=== PATIENT | female | born 1945 | race Two or more races ===

== ENCOUNTER 2019-10-10 09:40 | Emergency (ER) | payer MEDICAID ==
[~2019-10-10] VITALS: Ht 157.5 cm; Wt 68.0 kg
[2019-10-10 09:40] VITALS: BP 150/80
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
--- NOTE | 2019-10-10 09:51 | NUR ---
ED Nurse Note: Patient sent to CT.
[2019-10-10] MEDS ORDERED: VITAMIN D5000 UNI1 PO (09:54)
[2019-10-10] MEDS ORDERED: HYDROCHLOROTHIA25 MG ORAL (09:54)
[2019-10-10] MEDS ORDERED: TYLENOL EXTRA500 MG ORAL (09:54)
[2019-10-10] MEDS ORDERED: TENORMIN100 MG ORAL (09:54)
[2019-10-10] MEDS ORDERED: LISINOPRIL20 MG ORAL (09:54)
[2019-10-10] MEDS ORDERED: ASPIRIN-LOW81 MG ORAL (09:54)
--- NOTE | 2019-10-10 10:08 | NUR ---
ED Nurse Note: Patient back from CT.
[2019-10-10 10:55] VITALS: BP 165/69
--- NOTE | 2019-10-10 11:00 | Diagnostic Imaging Report ---
Indication: Headache Technique: Contiguous 5 mm thick transaxial imaging of the head obtained in a Siem[employer] Sensation [address] scanner. Soft tissue and bone windows generated. Automatic Exposure Control was utilized. Total Dose length Product (DLP): [address] Dose Index Volume (CTDIvol): 62.7 mGy Comparison: none Findings: There is mild prominence of the ventricles, basal cisterns, and cerebral sulci consistent with atrophy. Mild, nonspecific, white matter hypoattenuation is noted throughout the brain consistent with chronic small vessel disease. Small cystic foci noted within the right basal ganglia including the caudate and putamen consistent with old lacunar infarcts. There is no midline shift, edema, acute hemorrhage, mass effect, or abnormal extra-axial fluid collections. Bones are unremarkable. Impression: No acute intracranial bleed, mass effect or edema. Mild atrophy of the brain. Nonspecific white matter hypoattenuation probably due to chronic small vessel disease including presence of old right basal ganglia lacunar infarcts. The CT scanner at [facility] is accredited by the [employer] and the scans are performed using dose optimization techniques as appropriate to a performed exam including Automatic Exposure control.
[2019-10-10 11:24] VITALS: BP 165/69
--- NOTE | 2019-10-10 11:24 | NUR ---
ER DISCHARGE NOTE: Patient is cleared to be discharged per ERMD Dr. Oliver, pt is aox4, on room air, with stable vital signs. pt was given dc instructions, pt was able to verbalize understanding, pt id band removed without complications. pt is able to ambulate with steady gait. pt took all belongings.
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
== END 2019-10-10 11:24 | disposition home or self-care (01) ==
LOC: EDBD 09:40 → EMR 10:00
DX: S09.90XA Unspecified injury of head, initial encounter (principal); V43.62XA Car passenger injured in collision with other type car in traffic accident, initial encounter; Y92.410 Unspecified street and highway as the place of occurrence of the external cause; I10 Essential (primary) hypertension; E11.9 Type 2 diabetes mellitus without complications
CPT/HCPCS: 70450; 72125; Z7502; 99284